=== PATIENT | female | born 1970 | race Hispanic/Latino ===

== ENCOUNTER → 2017-02-05 | Outpatient (CLI) | payer OTHER ==
[~2017-02-05] VITALS: Ht 163.8 cm; Wt 101.6 kg
[~2017-02-05] MED LIST: K-DUR20 MEQ PO; LOPRESSOR HC1 TABLET PO; LOPRESSOR100 M1 PO
== END | disposition home or self-care (01) ==
LOC: AMB 09:02
PROC: 0DB68ZX Excision of Stomach, Via Natural or Artificial Opening Endoscopic, Diagnostic (ICD-10-PCS; principal; 2017-02-05)
DX: K29.70 Gastritis, unspecified, without bleeding (principal); K44.9 Diaphragmatic hernia without obstruction or gangrene; K21.9 Gastro-esophageal reflux disease without esophagitis; I10 Essential (primary) hypertension; E03.9 Hypothyroidism, unspecified; E66.01 Morbid (severe) obesity due to excess calories; Z68.37 Body mass index [BMI] 37.0-37.9, adult
CPT/HCPCS: 88305; 88342 TC; J2250; J3010

== ENCOUNTER 2017-04-08 22:06 | Inpatient (IN) | payer OTHER ==
[~2017-04-08] VITALS: Ht 157.5 cm; Wt 101.6 kg
[~2017-04-08 22:06] MED LIST changes: +BIOTIN 5000MCG PO; +HYGROTON25 MG PO; -LOPRESSOR HC1 TABLET PO; +SYNTHROID88 MCG PO; +TOPAMAX50 MG PO; +TOPROL XL100 MG PO; +VITAMIN D32000 UNI1 PO; +ZANAFLEX2 M1 PO
[2017-04-09 13:10] VITALS: BP 138/87
[2017-04-09 19:20] VITALS: BP 112/62
[2017-04-10 00:09] VITALS: BP 116/61
[2017-04-10 04:03] VITALS: BP 110/55
[2017-04-10 06:44] LABS: HEMATOCRIT 37.6 % (36.0-46.0); HEMOGLOBIN 12.1 G/DL (11.9-15.5); MCH 25.3 PG (29.0-34.0); MCHC 32.2 G/DL (30.0-36.0); MCV 78.5 FL (83-99); PLATELET COUNT 307 K/uL (156-360); RBC DIS.WIDTH-CV 14.6 % (11.8-14.6); RBC DIS.WIDTH-SD 41.1 % (39-53); RED BLOOD COUNT 4.79 M/uL (3.80-5.20); WHITE BLOOD COUNT 8.6 K/uL (4.1-10.2)
[2017-04-10 07:09] LABS: CHLORIDE 100 MEQ/L (99-109); CREATININE 0.6 MG/DL (0.6-1.3); GFR ESTIMATE (CALCULATED) > 59 mL/min/; GLUCOSE 111 mg/dL (70-99); MAGNESIUM 1.7 mg/dl (1.3-2.7); PHOSPHORUS 3.6 mg/dL (2.5-4.9); SODIUM 134 MEQ/L (136-147); UREA NITROGEN (BUN) 10 mg/dL (9-23)
[2017-04-10 07:37] VITALS: BP 123/70
== END 2017-04-10 11:15 | disposition home or self-care (01) | DRG 621 ==
LOC: ENRESERV 22:06 → 2SOUTH 04-09 10:01 → ENRESERV 04-09 15:32 → 2SOUTH 04-09 15:33 → 2EAST 04-09 19:03
PROVIDERS: Surgery
PROC: 0DB64Z3 Excision of Stomach, Percutaneous Endoscopic Approach, Vertical (ICD-10-PCS; principal; 2017-04-09)
DX: E66.01 Morbid (severe) obesity due to excess calories (principal)
CPT/HCPCS: 80048; 82948; 83735; 84100; 85027; 94799; C9113; J0330; J0690; J1100; J1170; J1644; J1650; J1815; J2405; J2710; J3010; J3480; J7120; S0020

== ENCOUNTER 2017-04-21 17:25 | Inpatient (IN) | payer OTHER ==
[~2017-04-21] VITALS: Ht 162.6 cm; Wt 94.0 kg
[2017-04-21 19:16] LABS: HEMATOCRIT 38.3 % (36.0-46.0); HEMOGLOBIN 12.8 G/DL (11.9-15.5); MCH 26.3 PG (29.0-34.0); MCHC 33.4 G/DL (30.0-36.0); MCV 78.8 FL (83-99); PLATELET COUNT 355 K/uL (156-360); RBC DIS.WIDTH-CV 14.8 % (11.8-14.6); RBC DIS.WIDTH-SD 42.1 % (39-53); RED BLOOD COUNT 4.86 M/uL (3.80-5.20); WHITE BLOOD COUNT 9.7 K/uL (4.1-10.2)
[2017-04-21 19:25] LABS: ALBUMIN 4.2 g/dL (3.2-4.8); CHLORIDE 94 mEq/L (99-109); POTASSIUM 2.8 mEq/L (3.7-5.4); SODIUM 135 mEq/L (136-147)
[2017-04-21 19:27] LABS: GLUCOSE 109 mg/dL (70-99)
[2017-04-21 19:28] LABS: TOTAL PROTEIN 8.2 g/dL (6.4-8.3)
[2017-04-21 19:29] LABS: TOTAL BILIRUBIN 1.3 mg/dL (0.0-1.0)
[2017-04-21 19:31] LABS: ALKALINE PHOSPHATASE 72 IU/L (3-129); CREATININE 0.8 mg/dL (0.6-1.3); GFR ESTIMATE (CALCULATED) > 59 mL/min/
[2017-04-21 19:32] LABS: UREA NITROGEN (BUN) 18 mg/dL (9-23)
[2017-04-21 19:33] LABS: AST (GOT) 15 IU/L (2-34)
[2017-04-21 19:34] LABS: ALT (GPT) 16 IU/L (3-49)
[2017-04-21 19:41] LABS: QUANTITATIVE HCG < 4.0 MIU/ML
[2017-04-21 20:14] LABS: APPEARANCE SL.HAZY ((CLEAR)); BILIRUBIN SMALL; BLOOD NEGATIVE; COLOR AMBER ((YELLOW)); GLUCOSE (STRIP) NEGATIVE; KETONES 80; LEUKOCYTES NEGATIVE; NITRITE NEGATIVE; PROTEIN (STRIP) 100; SPECIFIC GRAVITY 1.027 (1.000-1.030)
[2017-04-21 20:53] LABS: BACTERIA RARE /HPF; EPITHELIAL CELLS 1+ /HPF; HYALINE CASTS 0-5 /LPF; MUCUS 4+ /LPF; RED BLOOD CELLS NONE SEEN /HPF (0-5); UCUL ADDED? YES
[2017-04-21] MEDS ORDERED: NORCO 5/3251 TABLET PO (22:51)
[2017-04-21] MEDS ORDERED: PROTONIX40 MG PO (22:51)
[2017-04-21] MEDS ORDERED: GUMMI BEAR MUL1 EACH PO (22:52)
[2017-04-21] MEDS ORDERED: B-12500 MC1 SL (22:52)
[2017-04-21] MEDS ORDERED: CARAFATE100 MG/ML PO (22:53)
[2017-04-21] MEDS ORDERED: ICY HOT CREAM35.4 G1 TP (22:53)
[2017-04-21] MEDS ORDERED: ZOFRAN4 MG PO (22:53)
[2017-04-21 22:57] LABS: LIPASE 52 U/L (1.0-51.0)
[2017-04-22 02:15] LABS: HEMATOCRIT 32.4 % (36.0-46.0); MCH 26.8 PG (29.0-34.0); MCV 78.8 FL (83-99); PLATELET COUNT 276 K/uL (156-360); RBC DIS.WIDTH-CV 14.8 % (11.8-14.6); RBC DIS.WIDTH-SD 42.5 % (39-53); RED BLOOD COUNT 4.11 M/uL (3.80-5.20); WHITE BLOOD COUNT 7.3 K/uL (4.1-10.2)
[2017-04-22 06:11] LABS: HEMATOCRIT 34.6 % (36.0-46.0); HEMOGLOBIN 11.4 G/DL (11.9-15.5); MCH 26.1 PG (29.0-34.0); MCHC 32.9 G/DL (30.0-36.0); MCV 79.4 FL (83-99); PLATELET COUNT 276 K/uL (156-360); RBC DIS.WIDTH-CV 14.8 % (11.8-14.6); RBC DIS.WIDTH-SD 42.5 % (39-53); RED BLOOD COUNT 4.36 M/uL (3.80-5.20); WHITE BLOOD COUNT 6.9 K/uL (4.1-10.2)
[2017-04-22 07:28] LABS: INTER. NORMALIZED RATIO 1.4
[2017-04-22 07:31] LABS: PTT 24.4 SEC (25-37)
[2017-04-22 07:45] LABS: CHLORIDE 98 mEq/L (99-109); POTASSIUM 2.9 mEq/L (3.7-5.4); SODIUM 134 mEq/L (136-147)
[2017-04-22 07:46] LABS: GLUCOSE 102 mg/dL (70-99)
[2017-04-22 07:50] LABS: CREATININE 0.7 mg/dL (0.6-1.3); GFR ESTIMATE (CALCULATED) > 59 mL/min/
[2017-04-22 07:51] LABS: UREA NITROGEN (BUN) 10 mg/dL (9-23)
[2017-04-22 12:18] VITALS: BP 131/79
[2017-04-22 15:58] VITALS: BP 122/88
[2017-04-22 20:39] LABS: INTER. NORMALIZED RATIO 1.5
[2017-04-22 20:42] LABS: PTT 43.4 SEC (25-37)
[2017-04-23 00:12] VITALS: BP 99/63
[2017-04-23 04:10] LABS: HEMATOCRIT 33.3 % (36.0-46.0); HEMOGLOBIN 11.1 G/DL (11.9-15.5); MCH 26.5 PG (29.0-34.0); MCHC 33.3 G/DL (30.0-36.0); MCV 79.5 FL (83-99); PLATELET COUNT 275 K/uL (156-360); RBC DIS.WIDTH-SD 43.3 % (39-53); RED BLOOD COUNT 4.19 M/uL (3.80-5.20); WHITE BLOOD COUNT 5.6 K/uL (4.1-10.2)
[2017-04-23 04:53] LABS: ALBUMIN 3.6 g/dL (3.2-4.8); CHLORIDE 101 mEq/L (99-109); POTASSIUM 3.1 mEq/L (3.7-5.4); SODIUM 138 mEq/L (136-147)
[2017-04-23 04:54] LABS: AMYLASE 62 IU/L (1-118)
[2017-04-23 04:55] LABS: GLUCOSE 83 mg/dL (70-99)
[2017-04-23 04:57] LABS: TOTAL BILIRUBIN 1.1 mg/dL (0.0-1.0)
[2017-04-23 04:59] LABS: ALKALINE PHOSPHATASE 62 IU/L (3-129); CREATININE 0.7 mg/dL (0.6-1.3); GFR ESTIMATE (CALCULATED) > 59 mL/min/
[2017-04-23 05:00] LABS: AST (GOT) 15 IU/L (2-34); UREA NITROGEN (BUN) 6 mg/dL (9-23)
[2017-04-23 05:01] LABS: DIRECT BILIRUBIN 0.5 mg/dL (0.0-0.3)
[2017-04-23 05:02] LABS: ALT (GPT) 14 IU/L (3-49); LIPASE 67 U/L (1.0-51.0)
[2017-04-23 05:07] LABS: TOTAL PROTEIN 6.3 g/dL (6.4-8.3)
[2017-04-23 05:51] LABS: C-REACTIVE PROTEIN > 240.0 MG/L (0-10)
[2017-04-23 07:56] VITALS: BP 114/60
[2017-04-23 16:47] VITALS: BP 121/68
[2017-04-24 00:01] VITALS: BP 112/77
[2017-04-24 07:03] LABS: HEMATOCRIT 33.1 % (36.0-46.0); HEMOGLOBIN 10.6 G/DL (11.9-15.5); MCH 25.7 PG (29.0-34.0); MCV 80.3 FL (83-99); PLATELET COUNT 261 K/uL (156-360); RBC DIS.WIDTH-CV 15.2 % (11.8-14.6); RBC DIS.WIDTH-SD 44.6 % (39-53); RED BLOOD COUNT 4.12 M/uL (3.80-5.20); WHITE BLOOD COUNT 4.1 K/uL (4.1-10.2)
[2017-04-24 07:20] LABS: AMYLASE 33 IU/L (1-118); CHLORIDE 99 MEQ/L (99-109); CREATININE 0.4 MG/DL (0.6-1.3); GFR ESTIMATE (CALCULATED) > 59 mL/min/; GLUCOSE 89 mg/dL (70-99); LIPASE 54 U/L (1.0-51.0); SODIUM 138 MEQ/L (136-147); UREA NITROGEN (BUN) 4 mg/dL (9-23)
[2017-04-24 07:54] VITALS: BP 133/73
[2017-04-24 07:55] VITALS: BP 137/70
[2017-04-24 11:12] LABS: MAGNESIUM 2.1 mg/dl (1.3-2.7)
[2017-04-24 16:26] VITALS: BP 129/84
[2017-04-24 20:47] VITALS: BP 115/79
[2017-04-25 00:06] VITALS: BP 108/73
[2017-04-25 04:04] VITALS: BP 112/67
[2017-04-25 08:05] VITALS: BP 131/80
[2017-04-25 08:17] LABS: BASOPHIL (%) 0.6 % (0-1); EOSINOPHIL (%) 4.5 % (0-5); EOSINOPHIL COUNT 0.2 K/uL (0-0.3); HEMATOCRIT 33.3 % (36.0-46.0); HEMOGLOBIN 10.3 G/DL (11.9-15.5); IMMATURE GRANULOCYTE (%) 0.3 % (0.0-0.7); LYMPHOCYTE (%) 18.3 % (15-42); LYMPHOCYTE COUNT 0.7 K/uL (1.0-2.8); MCH 25.5 PG (29.0-34.0); MCHC 30.9 G/DL (30.0-36.0); MCV 82.4 FL (83-99); MONOCYTE COUNT 0.5 K/uL (0-0.8); NEUTROPHIL (%) 63.3 % (45-76); NEUTROPHIL COUNT 2.3 K/uL (1.8-6.4); PLATELET COUNT 282 K/uL (156-360); RBC DIS.WIDTH-CV 15.6 % (11.8-14.6); RBC DIS.WIDTH-SD 47.1 % (39-53); RED BLOOD COUNT 4.04 M/uL (3.80-5.20); WHITE BLOOD COUNT 3.6 K/uL (4.1-10.2)
[2017-04-25 08:44] LABS: AMYLASE 28 IU/L (1-118); CHLORIDE 102 MEQ/L (99-109); CREATININE 0.5 MG/DL (0.6-1.3); GFR ESTIMATE (CALCULATED) > 59 mL/min/; GLUCOSE 82 mg/dL (70-99); LIPASE 39 U/L (1.0-51.0); SODIUM 139 MEQ/L (136-147); UREA NITROGEN (BUN) 4 mg/dL (9-23)
[2017-04-25 08:57] LABS: POTASSIUM 4.3 MEQ/L (3.7-5.4)
[2017-04-25 16:32] VITALS: BP 123/82
[2017-04-26 00:05] VITALS: BP 112/63
[2017-04-26 07:34] VITALS: BP 112/72
[2017-04-26 08:25] LABS: HEMATOCRIT 35.9 % (36.0-46.0); HEMOGLOBIN 11.2 G/DL (11.9-15.5); MCH 26.1 PG (29.0-34.0); MCHC 31.2 G/DL (30.0-36.0); MCV 83.7 FL (83-99); PLATELET COUNT 323 K/uL (156-360); RBC DIS.WIDTH-SD 48.2 % (39-53); RED BLOOD COUNT 4.29 M/uL (3.80-5.20); WHITE BLOOD COUNT 3.7 K/uL (4.1-10.2)
[2017-04-26 08:49] LABS: CHLORIDE 99 MEQ/L (99-109); CREATININE 0.5 MG/DL (0.6-1.3); GFR ESTIMATE (CALCULATED) > 59 mL/min/; GLUCOSE 86 mg/dL (70-99); SODIUM 139 MEQ/L (136-147); UREA NITROGEN (BUN) 4 mg/dL (9-23)
[2017-04-26 09:03] LABS: AMYLASE 31 IU/L (1-118); LIPASE 40 U/L (1.0-51.0)
[2017-04-26 17:08] VITALS: BP 121/68
[2017-04-27 00:09] VITALS: BP 107/61
[2017-04-27 06:45] LABS: HEMATOCRIT 32.1 % (36.0-46.0); MCH 25.7 PG (29.0-34.0); MCHC 31.2 G/DL (30.0-36.0); MCV 82.5 FL (83-99); PLATELET COUNT 274 K/uL (156-360); RBC DIS.WIDTH-CV 15.9 % (11.8-14.6); RBC DIS.WIDTH-SD 47.5 % (39-53); RED BLOOD COUNT 3.89 M/uL (3.80-5.20); WHITE BLOOD COUNT 3.2 K/uL (4.1-10.2)
[2017-04-27 07:10] LABS: CHLORIDE 100 MEQ/L (99-109); CREATININE 0.6 MG/DL (0.6-1.3); GFR ESTIMATE (CALCULATED) > 59 mL/min/; GLUCOSE 82 mg/dL (70-99); POTASSIUM 3.9 MEQ/L (3.7-5.4); SODIUM 139 MEQ/L (136-147); UREA NITROGEN (BUN) 4 mg/dL (9-23)
[2017-04-27 07:18] VITALS: BP 115/65
[2017-04-27] MEDS ORDERED: NORCO 5/3251 TABLET PO (14:45)
[2017-04-27] MEDS ORDERED: ELIQUIS5 MG PO (14:54)
[2017-04-27] MEDS ORDERED: SENNA-DOCUSATE1 EAC1 PO (15:02)
[2017-04-27] MEDS ORDERED: MIRALAX119 GM PO (15:03)
== END 2017-04-27 15:44 | disposition home health service (06) | DRG 438 ==
LOC: EME 17:25 → RME 17:25 → ENRESERV 04-22 → EDOF 04-22 01:01 → 5SOUTH 04-22 01:01 → ENRESERV 04-22 01:04 → 5SOUTH 04-22 11:59 → ENRESERV 04-24 15:45 → CANRESERV 04-24 15:45 → ENRESERV 04-24 15:47 → 2EASTP 04-24 20:26
PROVIDERS: Hospitalist; Internal Medicine Gastroenterology; Physician Assistant; Student in an Organized Health Care Education/Training Program
DX: K85.81 Other acute pancreatitis with uninfected necrosis (principal); I81 Portal vein thrombosis; Z98.84 Bariatric surgery status; Z68.35 Body mass index [BMI] 35.0-35.9, adult; K86.2 Cyst of pancreas; J20.9 Acute bronchitis, unspecified; I10 Essential (primary) hypertension; E66.9 Obesity, unspecified; E87.6 Hypokalemia; E87.1 Hypo-osmolality and hyponatremia; E86.0 Dehydration; K59.00 Constipation, unspecified; G43.909 Migraine, unspecified, not intractable, without status migrainosus
CPT/HCPCS: 74177; 80048; 80048 91; 80053; 80076; 81003; 82150; 82948; 83690; 83735; 84702; 85025; 85027; 85610; 85730; 86140; 87086; 93005; 99281; 99285; J1956; J2270; J2405; J3475; J3480; J7030; J7120; S0028; S0030